=== PATIENT | female | born 1995 | race Caucasian/White ===

== ENCOUNTER 2017-10-19 09:46 | Outpatient (CLI) | payer MEDICAID | END 2017-10-19 09:47 | disposition home or self-care (01) | LOC: CTENTCT 09:46 | PROVIDERS: ATTEND Otolaryngology Plastic Surgery within the Head & Neck | DX: J32.9 Chronic sinusitis, unspecified (principal) | CPT/HCPCS: 70486 ==

== ENCOUNTER 2018-09-04 14:27 | Day surgery (SDC) | payer MEDICAID, OTHER ==
[2018-09-04 15:02] VITALS: BMI 23.9
--- NOTE | 2018-09-04 15:23 | PDOC.FPROB ---
FMR OB H&P: HPI - History of Present Illness Chief Complaint: Back pain Indentification: 22 year old History of Present Illness: 22 year old at 20.1 wks with DANIELA of 01/21/2018 presents with back pain with onset yesterday. She states that the pain has been intermittent in intensity since that time, but it acutely worsened today. She is having difficulty getting comfortable. Patient also endorses N/V/D since today. She has had NBNB emesis x2. Patient endorses abdominal pain, worse in the left lower quadrant. She denies headache, vision changes, LoF, changes in vaginal discharge, vaginal bleeding, or contractions. Primary Care Physician: Dr. Mcneal FMR OB H&P: Current - Care : 4 Para: 2 Gestational age: 20.1 wks Due date: 01/21/2018 - OB Labs GBS: unknown FMR OB H&P: History - Past Medical History PMH: Hx of kidney infections with last hospitalization 2 years ago Bipolar disorder - OB History OB History: Hx of ectopic in prior CS x2 - Surgical History Sx History: CX x2 - Social History Social History: Patient denies alcohol, drug, tobacco use. FMR OB H&P: Medications - Current Home Medications: Medication Instructions Recorded Confirmed Type Acetaminophen [Tylenol Extra 1,000 mg PO NOW tab 09/04/18 Rx Strength] Potassium Chloride [Klor-Con] 40 meq PO DAILY #2 pk 09/04/18 Rx 105/Iron/Folic AC/Dha 1 09/04/18 History [Prena1 True Combo Pack] Allergies/Adverse Reactions: Allergies Allergy/AdvReac Type Severity Reaction Status Date / Time No Known Allergies Allergy Unverified 09/04/18 14:54 FMR OB H&P: ROS - Review of Systems General: reports: fever/chills (chills), weight/appetite/sleep changes ( Decreased appetite due to nausea/vomiting) Eyes: denies: vision changes ENT: denies: nasal congestion, rhinorrhea, sore throat Respiratory: reports: shortness of breath. denies: cough, congestion Gastrointestinal: reports: abdominal pain, nausea, vomiting (x2), diarrhea Genitourinary (Female): denies: dysuria, vaginal discharge, vaginal pain, vaginal bleeding, contractions Musculoskeletal: reports: pain (left flank pain) Neurologic: denies: syncope, seizures, headache Integumentary: denies: itching, lesions Hematologic/Lymphatic: denies: prolonged or excessive bleeding FMR OB H&P: Vital Signs - Maternal Vital signs: VSS FMR OB H&P: Physical Exam - Physical Exam General: awake, alert and oriented Deviation from normal: Appeared to be in moderate amount of discomfort HEENT: normocephalic and atraumatic, MMM, grossly normal vision, grossly normal hearing Neck: supple Heart: RRR, no murmurs/rubs/gallops General: CTAB, no respiratory distress Abdomen: soft, gravid, other (Left sided CVA tenderness) Deviation from normal: Tender to palpation. Worse in LLQ. No rebound tenderness. No peritoneal s/s Neurological: no focal deficit Skin: no rash, capillary refill <2 seconds Lymphatic: no unusual bruising or bleeding Psychiatric: intact recent and remote memory FMR OB H&P: A/P - Problem List (1) Flank pain, acute Status: Acute Code(s): R10.9 - UNSPECIFIED ABDOMINAL PAIN (2) Status: Acute Qualifiers: Weeks of gestation: 20 weeks Qualified Code(s): Z3A.20 - 20 weeks gestation of (3) Hypokalemia Status: Acute Code(s): E87.6 - HYPOKALEMIA Disposition: 1. Flank pain, Left - 2 day history of left flank pain - Associated with N/V/D - UA negative; will send for urine culture due to history of kidney infections - CBC nml. CMP showed potassium 3.2, otherwise normal: no other electrolyte abnormalities, kidney injury, or liver injury noted - 1L LR bolus given - Tylenol 1000 mg and zofran 4 mg given - Upon re-evaluation, patient's flank pain had improved - Advised PO hydration at home 2. sIUP - at 20.1 wks - No concern for labor - dopplers showed FHT's in 130's; not picking up on NST 3. Hypokalemia - Replace potassium; prescription sent to pharmacy 4. UDS positive for Barbiturates - 2/2 fiocet use; advised to discuss all medications with OB before taking Discussion: Date/Time: 09/04/18 3799 This H&P was discussed with Dr. Hartman who agrees with the above documentation and plan. Signature: Sona Bass DO PGY-2 Attending Addendum - Attending Addendum Date/Time: 09/04/181911 I personally evaluated the patient and discussed the management with Dr. Wong. I agree with the History, Examination, Assessment and Plan documented above and have discussed with Dr. Mcneal.
[2018-09-04] MEDS ORDERED: Ondansetron ODT 4 MG TAB ONE (15:32)
[2018-09-04] MEDS ORDERED: Acetaminophen 500 MG TAB ONE ×2 (15:33→15:34)
[2018-09-04 15:45] LABS: Bacteria/HPF None Seen HPF (None Seen); Hyaline Casts/LPF NONE SEEN LPF (0-3 Hyaline); RBC/HPF None Seen HPF (0-3); Squamous Epithelial 0-3 HPF (0-3); WBC/HPF None Seen HPF (0-3)
[2018-09-04] MEDS ORDERED: Lactated Ringer's 1,000 ML IV SCH (15:45)
[2018-09-04] MEDS ORDERED: Ondansetron HCl/PF 4 MG/2 ML Vial IM SCH (16:00)
[2018-09-04] MEDS ORDERED: Acetaminophen 500 MG TAB PO SCH (16:00)
[2018-09-04 16:08] LABS: #Eosinphils 0.1 thou/uL (0.0-0.7); #Lymphocytes 1.4 thou/uL (1.20-3.40); #Monocytes 0.7 thou/uL (0.11-0.59); #Neutrophils 8.3 thou/uL (1.40-6.50); %Basophils 0.3 % (0.0-1.0); %Eosinophils 1.2 % (0.0-10.0); %Lymphocytes 13.5 % (21.0-51.0); %Monocytes 6.7 % (0.0-10.0); %Neutrophils 78.4 % (42.0-75.0); Hemoglobin 12.4 g/dL (12.0-16.0); Mean Corpuscular HGB CONC 34.4 g/dL (32.0-36.0); Mean Corpuscular Hemoglobin 30.5 pg (27.0-31.0); Mean Corpuscular Volume 88.9 fL (78.0-98.0); Mean Platelet Volume 8.5 fL (7.4-10.4); Platelet Count 181 thou/uL (130-400); RBC Distribution Width 11.7 % (11.5-14.5); Red Blood Cell (RBC) Count 4.08 mill/uL (4.20-5.40); White Blood Cell (WBC) Count 10.6 thou/uL (4.8-10.8)
[2018-09-04 16:32] LABS: ALT (SGPT) 9 U/L (8-55); AST (SGOT) 14 U/L (5-34); Albumin 3.6 g/dL (3.5-5.0); Alkaline Phosphatase 69 U/L (40-150); Anion Gap 10 mmol/L (10-20); BUN (Urea Nitrogen) 6 mg/dL (7.0-18.7); Bilirubin, Total 0.3 mg/dL (0.2-1.2); Calc. Creatinine Clearance 152 mL/min (70-130); Calcium 8.7 mg/dL (7.8-10.44); Carbon Dioxide 22 mmol/L (22-29); Chloride 107 mmol/L (98-107); Estimated GFR-MDRD Greater than 90; Globulin 3.2 g/dL (2.4-3.5); Glucose 81 mg/dL (70-105); Potassium 3.2 mmol/L (3.5-5.1); Protein, Total 6.8 g/dL (6.0-8.3); Sodium 136 mmol/L (136-145)
[2018-09-04 16:49] LABS: Amphetamine Not Detected (NotDetected); Barbiturates Screen Detected (NotDetected); Benzodiazepine Screen Not Detected (NotDetected); Cocaine Metabolite Screen Not Detected (NotDetected); Medtox Control Line Valid? VALID (VALID); Medtox Reader # READER 1; Methadone Not Detected (NotDetected); Methamphetamine Not Detected (NotDetected); Opiate Screen Not Detected (NotDetected); Oxycodone Screen Not Detected (NotDetected); Phencyclidine (PCP) Not Detected (NotDetected); THC/Cannabinoid Screen Not Detected (NotDetected); Tricyclic Screen Not Detected (NotDetected)
[2018-09-04] MEDS ORDERED: Potassium Chloride 20 MEQ TAB PO SCH (17:00)
== END 2018-09-04 17:55 | disposition home or self-care (01) ==
LOC: L&D/OP 14:27
PROVIDERS: ATTEND Obstetrics & Gynecology
DX: O99.89 Other specified diseases and conditions complicating pregnancy, childbirth and the puerperium (principal); M54.9 Dorsalgia, unspecified; R10.9 Unspecified abdominal pain; O99.282 Endocrine, nutritional and metabolic diseases complicating pregnancy, second trimester; E87.6 Hypokalemia; Z3A.20 20 weeks gestation of pregnancy
CPT/HCPCS: 36415; 80053; 80306; 81015; 85025; 99283; Q0162

== ENCOUNTER 2018-12-04 01:42 | Day surgery (SDC) | payer OTHER ==
[2018-12-04 02:20] VITALS: BP 114/78; TEMP 97.6; BMI 27.1
--- NOTE | 2018-12-04 02:38 | PDOC.LDHP ---
Labor and Delivery H&P HPI: Patient of Dr Mcneal CC: possible contractions at 32 weeks 3 days Location: L&D Time: 229 HPI: 23 yo prior CS x 2 here for possible CTX, no LOF, no VB. Good FM. Recently DX with UTI on 12/02 but has not yet started her percribed antibiotics. No fever. Review of Systems: complete ROS done and as per HPI Current gestational age (weeks): 32 (3 days) Dating criteria: last menstrual period Grav: 3 Para: 2 OB History Details: CS X 2 Current complications: none Abnormal US findings: No Current medications: pre-betty vitamins Previous surgical history: low tranverse CS (X 2) Allergies/Adverse Reactions: Allergies Allergy/AdvReac Type Severity Reaction Status Date / Time No Known Allergies Allergy Verified 12/04/18 02:13 Social history: none - Physical Exam Vital signs reviewed and normal: yes General: NAD Heart: RRR Lungs: CTAB Abdomen: gravid Extremeties: no edema FHT: category 1 [place] contractions every: none - Assessment Threatened lacor (PTL) at 32 weeks, prior CS x 2...HX recent UTI DX...has RX at home - Plan Plan: observation in L&D (Reactive NST; no evidence CTX pattern; check CX. Patient to start her outpatient antibiotics as prescribed.)
== END 2018-12-04 02:49 | disposition home or self-care (01) ==
LOC: L&D/OP 01:42
PROVIDERS: ATTEND Obstetrics & Gynecology
DX: O47.03 False labor before 37 completed weeks of gestation, third trimester (principal); Z3A.32 32 weeks gestation of pregnancy; Z79.899 Other long term (current) drug therapy
CPT/HCPCS: 99282

== ENCOUNTER 2018-12-27 23:40 | Day surgery (SDC) | payer OTHER ==
[2018-12-28] MEDS ORDERED: Dexamethasone 4 mg/ml Vial ONE (00:02)
[2018-12-28] MEDS ORDERED: Betamet Acet/Betamet Na Ph 30 MG/5 ML VIAL ONE (00:03)
[2018-12-28] MEDS ORDERED: Lactated Ringer's 1,000 ML IV SCH ×2 (00:15)
[2018-12-28] MEDS ORDERED: NIFEdipine 10 MG CAP PO PRN (00:16)
--- NOTE | 2018-12-28 00:28 | PRG ---
DATE OF SERVICE: 12/28/2018 TIME OF SERVICE: 0005. PRESENTING COMPLAINT: Contractions at 35 weeks' gestation. HISTORY OF PRESENT ILLNESS: The patient is a 23-year-old 4, para 2, AB1 at 35 weeks, previous x2, who presents complaining of contractions for 3 days. She states they have been worse today. She denied rupture of membranes. She states her baby is too big and she thinks her belly may pop. She denies rupture of membranes. She reports an active fetus. [employer] HISTORY: x2, ectopic x1. Patient is unsure of laterality of her previous ectopic with salpingectomy. She denies STDs. She reports that she is O positive. Antepartum record is not available on the unit. PAST MEDICAL HISTORY: Denies. PAST SURGICAL HISTORY: Ectopic. ALLERGIES: DENIES. MEDICATIONS: vitamins. SOCIAL HISTORY: Denies tobacco, alcohol, or drug use. FAMILY HISTORY: Noncontributory. REVIEW OF SYSTEMS: Noncontributory. PHYSICAL EXAMINATION: GENERAL: White female, in no acute distress. VITAL SIGNS: Temperature 98.9, respirations 18, pulse 92, blood pressure 118/ 72. HEENT: Within normal limits. LUNGS: Clear to auscultation bilaterally. HEART: Regular rhythm. ABDOMEN: Soft with palpable contractions q.3 to 5 that are indentable. Fundal height 36 cm. FHTs are 140s to 150s. Full without lesions. Vagina without discharge. Cervix closed, long, and high. Cephalic presentation. EXTREMITIES: Without clubbing, cyanosis, or edema. Nonstress test reveals contractions q.2.5 to 5 minutes. heart rate baseline of 135, positive accelerations to 150, no decelerations noted, category I. IMPRESSION: contractions without evidence of active labor at 35 weeks' gestation, previous x2. PLAN: Admission, hydration, Procardia per protocol, betamethasone for lung maturity. 12/28/18 0300: pt contractions resolved. Pt dc home to fu on pm for second dose of betamethesone. Job ID: [id number] [facility]
[2018-12-28] MEDS ORDERED: Betamet Acet/Betamet Na Ph 30 MG/5 ML VIAL IM SCH (00:30)
[2018-12-28] MEDS: NIFEdipine 10 MG CAP PO SCH ×3 (00:30→01:42)
[2018-12-28] MEDS ORDERED: Acetaminophen 500 MG TAB PO PRN (01:56)
[2018-12-28 01:57] VITALS: BP 128/72; TEMP 97.6
[2018-12-28] MEDS ORDERED: diphenhydrAMINE 25 MG CAP PO SCH (02:30)
== END 2018-12-28 03:55 | disposition home or self-care (01) ==
LOC: L&D/OP 23:40
PROVIDERS: ATTEND Obstetrics & Gynecology
DX: O60.03 Preterm labor without delivery, third trimester (principal); Z3A.35 35 weeks gestation of pregnancy
CPT/HCPCS: 96360; 96361; 96372; 99285; J0702; J1100; Q0163

== ENCOUNTER 2019-01-19 09:16 | Inpatient (IN) | payer OTHER ==
[2019-01-19] MEDS: Lactated Ringer's 1,000 ML IV SCH ×3 (09:41→20:27)
[2019-01-19] MEDS ORDERED: Promethazine HCl 25 MG/ML VIAL IM PRN ×3 (10:18→18:07)
[2019-01-19] MEDS ORDERED: Ondansetron PF 4 MG/2 ML Vial IVP PRN ×3 (10:18→18:07)
--- NOTE | 2019-01-19 10:23 | PDOC.LDHP ---
Labor and Delivery H&P Chief complaint: scheduled section Due date: 01/26/19 Grav: 4 Para: 2 Current complications: none Abnormal US findings: No Current medications: pre- vitamins Previous surgical history: low tranverse CS, other (laparoscopy (suspected ectopic)) Allergies/Adverse Reactions: Allergies Allergy/AdvReac Type Severity Reaction Status Date / Time No Known Allergies Allergy Verified 12/28/18 00:00 Social history: none - Physical Exam Vital signs reviewed and normal: yes General: NAD, resting Heart: RRR Lungs: CTAB Abdomen: gravid Extremeties: no edema FHT: category 1 - Assessment L&D Assessment: scheduled repeat section - Plan Plan: admit to L&D, to OR for section
[2019-01-19 10:29] VITALS: BMI 27.3
[2019-01-19] MEDS ORDERED: Bicitra 30 ML UDCUP PO SCH (10:30)
[2019-01-19] MEDS ORDERED: CEFAZOLIN 2 GM in Premix Bag 1 BAG IVPB SCH (10:30)
[2019-01-19 10:41] LABS: Hemoglobin 10.4 g/dL (12.0-16.0); Mean Corpuscular HGB CONC 32.1 g/dL (32.0-36.0); Mean Corpuscular Hemoglobin 23.3 pg (27.0-31.0); Mean Corpuscular Volume 72.4 fL (78.0-98.0); Mean Platelet Volume 10.6 fL (7.4-10.4); Platelet Count 142 thou/uL (130-400); RBC Distribution Width 16.1 % (11.5-14.5); Red Blood Cell (RBC) Count 4.46 mill/uL (4.20-5.40); White Blood Cell (WBC) Count 11.3 thou/uL (4.8-10.8)
[2019-01-19 11:20] LABS: HBSAg Index 0.19 S/CO (0-0.99); Hep B Surf Ag Non-Reactive S/CO (NonReactive); Syphilis Antibody Nonreactive (Nonreactive); Syphilis Antibody Index 0.04 S/CO (<1.00 Non-Reactive)
[2019-01-19] MEDS ORDERED: Ketorolac Tromethamine 30 MG/ML VIAL ONE ×2 (11:20→15:05)
[2019-01-19] MEDS ORDERED: Ondansetron PF 4 MG/2 ML Vial ONE ×2 (11:20→15:00)
[2019-01-19] MEDS ORDERED: Dexamethasone 20 MG/5 ML VIAL ONE (11:20)
[2019-01-19] MEDS ORDERED: MORPHINE 5 MG/10 ML PF VIAL ONE (14:19)
[2019-01-19] MEDS ORDERED: ePHEDrine/0.9% NaCl/PF SYRINGE 50 mg/10 ml ONE (14:32)
[2019-01-19] MEDS ORDERED: Fentanyl 100 MCG/2 ML VIAL ONE (14:51)
[2019-01-19] MEDS ORDERED: Midazolam HCl 2 mg/2 ml Vial ONE ×2 (14:52→15:11)
[2019-01-19] MEDS ORDERED: Oxytocin 10 UNITS/ML VIAL ONE (15:01)
[2019-01-19] MEDS ORDERED: Dexamethasone 4 mg/ml Vial ONE (15:05)
[2019-01-19] MEDS ORDERED: Promethazine HCl 25 MG SUPP PR PRN (15:21)
[2019-01-19] MEDS ORDERED: HYDROmorphone 2 MG/ML VIAL SLOW IVP PRN (15:21)
[2019-01-19] MEDS ORDERED: Eucerin (Mineral Oil/Petrolatum,White) 30 gm Jar TOP PRN (15:21)
[2019-01-19] MEDS ORDERED: Naloxone HCl 0.4 mg/ml Vial IVP PRN ×2 (15:21)
[2019-01-19] MEDS ORDERED: diphenhydrAMINE 50 MG/ML VIAL IVP PRN (15:21)
[2019-01-19] MEDS ORDERED: Ketorolac Tromethamine 30 MG/ML VIAL IVP PRN (15:21)
[2019-01-19] MEDS ORDERED: Ondansetron HCl/PF 4 MG/2 ML Vial IVP PRN (15:21)
[2019-01-19] MEDS ORDERED: Naloxone HCl 0.4 mg/ml Vial IV PRN (15:21)
[2019-01-19] MEDS ORDERED: L&D-Morphine 4 MG/ML VIAL SLOW IVP PRN (15:21)
[2019-01-19] MEDS ORDERED: Communication Order-Pharmacy FS SCH (15:30)
[2019-01-19] MEDS ORDERED: Meperidine HCl/PF 25 MG/ML VIAL ONE ×2 (15:57→17:40)
[2019-01-19] MEDS: Meperidine HCl/PF 25 MG/ML VIAL SLOW IVP PRN ×2 (15:59→17:42)
[2019-01-19] MEDS ORDERED: diphenhydrAMINE 50 MG/ML VIAL ONE (16:20)
[2019-01-19] MEDS ORDERED: Adacel (T-DAP) 0.5 ML SYRINGE IM ONE (18:07)
[2019-01-19] MEDS ORDERED: Simethicone Chewable 80 MG TAB PO PRN (18:07)
[2019-01-19] MEDS ORDERED: Bisacodyl 10 MG SUPP PR PRN (18:07)
[2019-01-19] MEDS ORDERED: Lanolin Ointment 7 GM TUBE TOP PRN (18:07)
[2019-01-19] MEDS ORDERED: Misoprostol 200 MCG TAB PR PRN (18:07)
[2019-01-19] MEDS ORDERED: Methylergonovine 0.2 MG/ML VIAL IM PRN (18:07)
[2019-01-19] MEDS ORDERED: NS / Oxytocin 40 units/1000ml 1,000 ML IV SCH (18:07)
[2019-01-19] MEDS ORDERED: Measles/Mumps/Rubella 10 MCG/0.5 ML VIAL SC ONE (18:07)
[2019-01-19] MEDS ORDERED: Varicella virus, LIVE 0.5 ML VIAL SC ONE (18:07)
[2019-01-19] MEDS: diphenhydrAMINE 25 MG CAP PO PRN (20:26)
[2019-01-19] MEDS: Docusate Calcium (SURFAK) 240 MG CAP PO SCH (20:26)
[2019-01-20] MEDS: Lactated Ringer's 1,000 ML IV SCH (00:55)
[2019-01-20] MEDS ORDERED: Zolpidem Tartrate 5 MG TAB PO PRN (03:30)
[2019-01-20] MEDS ORDERED: HYDROcodone/Acetaminophen 5/325 mg Tablet PO PRN (03:30)
[2019-01-20] MEDS: HYDROcodone/Acetaminophen 5/325 mg Tablet PO PRN ×3 (04:44→17:33)
[2019-01-20 06:06] LABS: Hemoglobin 8.8 g/dL (12.0-16.0); Mean Corpuscular HGB CONC 31.9 g/dL (32.0-36.0); Mean Corpuscular Hemoglobin 23.3 pg (27.0-31.0); Mean Corpuscular Volume 73.2 fL (78.0-98.0); Mean Platelet Volume 10.2 fL (7.4-10.4); Platelet Count 131 thou/uL (130-400); RBC Distribution Width 15.6 % (11.5-14.5); Red Blood Cell (RBC) Count 3.76 mill/uL (4.20-5.40); White Blood Cell (WBC) Count 13.8 thou/uL (4.8-10.8)
[2019-01-20] MEDS: diphenhydrAMINE 25 MG CAP PO PRN ×2 (06:18→19:38)
[2019-01-20] MEDS ORDERED: Sodium Chloride 0.9% 10 ML ONE ×2 (08:55→09:02)
[2019-01-20] MEDS: Docusate Calcium (SURFAK) 240 MG CAP PO SCH ×2 (08:58→19:38)
[2019-01-20] MEDS: Prenatal Vitamin 1 TAB PO SCH (08:58)
[2019-01-20] MEDS: Ibuprofen 800 MG TAB PO SCH ×2 (14:28→21:19)
--- NOTE | 2019-01-20 19:24 | PDOC.PP ---
Post Progress Note Post Day #: 1 PO intake tolerated: yes Flatus: yes Ambulation: yes Vital Signs (12 hours) Temp Pulse Resp BP Pulse Ox 01/20/19 17:23 97.6 F 96 16 115/64 97 01/20/19 08:11 97.6 F 89 20 103/61 97 Weight Weight 159 lb - Physical Examination General: NAD Cardiovascular: no m/r/g, RRR Respiratory: clear to auscultation bilaterally, non-labored breathing Abdominal: + bowel sounds, lochia, no distention Extremities: negative homans (B) Skin: CS incision dry & intact Neurological: no gross focal deficits Psychiatric: A&Ox3, normal affect Result Diagrams: 01/20/19 05:37 Additional Labs: Post Labs Blood Type O POSITIVE 01/19/19 10:29 Hep Bs Antigen Non-Reactive S/CO (NonReactive) 01/19/19 10:29
[2019-01-20] MEDS: Calcium Carbonate 500 MG ChewTAB PO PRN (19:38)
[2019-01-21] MEDS: HYDROcodone/Acetaminophen 5/325 mg Tablet PO PRN ×3 (02:39→12:31)
[2019-01-21] MEDS: Ibuprofen 800 MG TAB PO SCH ×2 (05:54→13:32)
--- NOTE | 2019-01-21 07:22 | PRG ---
DATE OF SERVICE: 01/21/2019 PRIMARY OB: Deonte Mcneal MD SUBJECTIVE: The patient is postop day 2, status post a scheduled repeat at term. She reports she is having decent pain control and reducing lochia. She has difficulty urinating, tolerating a diet. OBJECTIVE: VITAL SIGNS: Blood pressure 122/65, temperature 97.8, pulse of 97, respiratory rate is 20. GENERAL: She appears to be in no acute distress. She is alert, oriented, cooperative, and pleasant to interact with. HEAD: Normocephalic, atraumatic. ABDOMEN: Fundus is firm and at the umbilicus. EXTREMITIES: Nontender, nonedematous. Incision is clean, dry, and intact. LABORATORY DATA: Postoperative hemoglobin is 8.8, hematocrit 27.5, platelets are 131,000. ASSESSMENT AND PLAN: The patient is a 23-year-old female, postop day 2, complaining of hesitancy, urination. This may be result of residual effects of anesthesia or may be signs of urinary tract infection. We will collect a cath UA for evaluation and we will continue in-house management with plans for discharge tomorrow. Job ID: [id number]
[2019-01-21] MEDS: Calcium Carbonate 500 MG ChewTAB PO PRN (09:00)
[2019-01-21] MEDS: Docusate Calcium (SURFAK) 240 MG CAP PO SCH (09:00)
[2019-01-21] MEDS: Prenatal Vitamin 1 TAB PO SCH (09:01)
--- NOTE | 2019-01-21 09:15 | PDOC.EVN ---
Event Note - Event Note Event Note: 01/21/19.. @0915: just notified by RN that patient declines the cath UA as ordered by Dr Appiah. I will defer voided sample as 2 days PP may be contaminated. Check post void residual by bladder scan instead, to R/O retention as possibility.
--- NOTE | 2019-01-21 10:19 | PDOC.EVN ---
Event Note - Event Note Event Note: Patient voided but did not notify the RN immediately after void for scan, as instructed. After about an hour from void, bladder scan about 100ml. She now states she is "peeing fine".
[2019-01-21 11:21] VITALS: BP 112/61; TEMP 98.1
--- NOTE | 2019-01-21 12:44 | PDOC.EVN ---
Event Note - Event Note Event Note: DISCHARGE NOTE POD 2 s/p repeat CS (not in labor) Baby has been released for DC home today. The patient is also requesting dsch. Patient has been evaluated. Postop HCT 28 Incision C/D/I, vitals stable. I have cleared her for DC home today, POD [address] Mcneal.
--- NOTE | 2019-02-02 03:00 | OP ---
DATE OF PROCEDURE: 01/19/2019 PREOPERATIVE DIAGNOSIS: Intrauterine at 39 weeks and zero days, scheduled for a third repeat section. POSTOPERATIVE DIAGNOSIS: Intrauterine at 39 weeks and zero days, scheduled for a third repeat section. PROCEDURE PERFORMED: Repeat third section. FINDINGS: Viable female infant weighing 2739 g or 6 pounds 1 ounce with Apgars 9 and 9. QUANTITATIVE BLOOD LOSS: 265 g. COMPLICATIONS: None. DETAILS OF THE PROCEDURE: The patient was consented and taken back to the operating room where spinal anesthesia was found to be adequate. She was then prepped and draped in the normal sterile fashion. A timeout was performed by the entire operative team. The incision was then marked with a marking pen tested using sharp pickups. An incision was then made with a scalpel. The incision was carried through the adipose tissue down to the underlying rectus fascia using both sharp dissection as well as cautery. Once the fascia was identified, it was incised in the midline and then the fascial incision was carried through in both lateral directions using sharp as well as cautery dissection techniques. Next, the superior aspect of the rectus fascia was grasped with 2 Marga clamps, which was tented up and the rectus muscles were dissected off using blunt dissection as well as cautery dissection. Similarly, the inferior aspect of the fascial incision was grasped with 2 Marga clamps, tented up and the rectus muscles were dissected off bluntly as well as sharply. Next, the rectus muscles were in the midline and the peritoneum identified. The peritoneum was then carefully grasped with 2 hemostats and entered sharply. The peritoneal incision was extended superiorly and inferiorly and bladder blade was placed in the lower abdomen. At this point, the uterus was identified and the bladder flap was then developed using pickups with teeth as well as Metzenbaum scissors in both lateral directions. The bladder flap was then dissected downwards using the flash drier operator's finger as well as Metzenbaum scissors. The bladder blade was replaced. The lower uterine segment was then identified and entered sharply using a clean scalpel. The uterine incision was then dissected downwards until thin layer of muscle remained and this was entered bluntly using a hemostat to avoid any injury to the baby. The uterine incision was then stretched using two fingers in both lateral directions. An amniotomy was performed artificially using a hemostat and the baby was delivered using fundal pressure in a gentle fashion. Once out, the baby's mouth and nose were bulb suctioned, cord clamped and cut, and the baby was handed to waiting attendants. Next, the uterus was exteriorized, cleared of all clots and debris and the uterine incision was repaired with #1 Monocryl in a running locking fashion. A 2nd suture of the same type was used to obtain complete hemostasis at the uterine incision. The bladder flap was reapproximated using 3-0 Monocryl. Next, patient's left and right adnexa were inspected and appeared to be within normal limits. The posterior cul-de-sac was blotted dry and hemostasis assured. One more look at the uterine incision demonstrated hemostasis. Next, the uterus was replaced back within the abdomen. The peritoneum was reapproximated using 2-0 Monocryl without difficulty. The rectus muscles were then allowed to come back together and 0 chromic was used to aid in reapproximation of the muscle as necessary. The rectus fascia was then reapproximated in a running fashion using 0 Vicryl suture. The adipose tissue was then examined and appeared to be well approximated without any obvious separations. Finally, the skin was reapproximated with 3-0 Monocryl on a Tyrell needle without difficulty and Dermabond adhesive was applied to the skin. Once the glue was dry, the drapes were removed and the patient was transferred to an ambulatory bed where she was taken to recovery awake and in stable condition. Sponge, lap, and needle counts were correct x3. Job ID: [id number]
== END 2019-01-21 14:00 | disposition home or self-care (01) | DRG 788 ==
LOC: L&D 09:16 → 3SW 19:53
PROVIDERS: ADMIT Obstetrics & Gynecology; ATTEND Obstetrics & Gynecology
PROC: 10D00Z1 Extraction of Products of Conception, Low, Open Approach (ICD-10-PCS; principal; 2019-01-19)
PROC: 10907ZC Drainage of Amniotic Fluid, Therapeutic from Products of Conception, Via Natural or Artificial Opening (ICD-10-PCS; 2019-01-19)
DX: O34.211 Maternal care for low transverse scar from previous cesarean delivery (principal); Z3A.39 39 weeks gestation of pregnancy; Z37.0 Single live birth; Z23 Encounter for immunization
CPT/HCPCS: 36415; 51702; 85027; 86780; 86850; 86900; 86901; 87340; 90707; 90715; 90716; J1100; J1200; J1885; J2175; J2250; J2270; J2310; J2405; J2590; J3010; Q0163

== ENCOUNTER 2019-11-22 18:55 | Emergency (ER) | payer OTHER ==
--- NOTE | 2019-11-22 20:02 | ULT ---
EXAM: Transabdominal and transvaginal pelvic ultrasound with Doppler PROVIDED CLINICAL HISTORY: Pelvic pain COMPARISON: None FINDINGS: The uterus measures approximately 8.6 x 4.4 x 5.2 cm and demonstrates a small endometrial fluid colle ction without yolk sac or pole apparent. Right ovary measures approximately 2 x 2 0.4 x 1.5 cm and demonstrates a normal sonographic appearanc e. Left ovary measures approximately 2.3 x 1.7 x 2.5 cm and demonstrates a normal sonographic appearance . Grayscale and color Doppler sonography with spectral analysis of the ovarian waveforms demonstrates n ormal flow bilaterally. There is no evidence for significant free pelvic fluid. IMPRESSION: Endometrial fluid collection without yolk sac or pole, possibly early gestational sac, pseudo-g estational sac or endometrial fluid.
== END 2019-11-22 20:30 | disposition home or self-care (01) ==
LOC: ERS 18:55
DX: O20.0 Threatened abortion (principal); Z3A.01 Less than 8 weeks gestation of pregnancy
CPT/HCPCS: 76856

== ENCOUNTER 2019-11-24 15:03 | Emergency (ER) | payer OTHER ==
--- NOTE | 2019-11-24 16:20 | ULT ---
ULTRASOUND PELVIC ULTRASOUND TRANSVAGINAL DOPPLER DUPLEX: DATE: 11/24/2019 HISTORY: 24-year-old female with pelvic pain. Ectopic . TECHNIQUE: Transabdominal transducer and endovaginal transducer used to visualize intrapelvic contents with ordaz scale, color-flow, and spectral analysis. FINDINGS: Uterus: 9 x 6.5 x 4.5 cm. Small cystic structure resembling gestational sac at uterine fundus measuring 1 x 0.6 x 0.8 cm. No yolk sac or embryonic pole identified within. Adjacent small subchorionic hemorrhage. Small amount of free fluid in right adnexa. Right ovary 2.6 x 1.0 x 1.7 cm. Left ovary: 3.1 x 2.0 x 2.5 cm. No corpus luteal cyst. Blood flow demonstrated in ovaries. No free fluid in the cul-de-sac. IMPRESSION: 1) apparent intrauterine gestational sac with dimensions corresponding to 5 weeks 5 days gestational age. 2) no embryonic pole and no yolk sac identified. 3) possibilities include anembryonic versus very early viable . Pseudogestational sac of ectopic is less likely. 4) subchorionic hemorrhage. 5) recommend follow-up pelvic and transvaginal ultrasound in one week. Continued follow-up beta hCG.
[2019-11-24] MEDS ORDERED: Ondansetron ODT 4 MG TAB ONE (16:56)
== END 2019-11-24 17:45 | disposition home or self-care (01) ==
LOC: ERS 15:05
DX: O99.89 Other specified diseases and conditions complicating pregnancy, childbirth and the puerperium (principal); R10.30 Lower abdominal pain, unspecified; Z3A.01 Less than 8 weeks gestation of pregnancy
CPT/HCPCS: 36415; 76856; 84702; Q0162

== ENCOUNTER 2019-11-24 18:07 | Emergency (ER) | payer OTHER ==
[2019-11-24 19:08] LABS: #Lymphocytes 0.9 thou/uL (1.20-3.40); #Monocytes 0.4 thou/uL (0.11-0.59); #Neutrophils 4.3 thou/uL (1.40-6.50); %Basophils 0.3 % (0.0-1.0); %Eosinophils 0.6 % (0.0-10.0); %Lymphocytes 16.1 % (21.0-51.0); %Monocytes 7.7 % (0.0-10.0); %Neutrophils 75.3 % (42.0-75.0); Mean Corpuscular HGB CONC 34.3 g/dL (32.0-36.0); Mean Corpuscular Hemoglobin 28.3 pg (27.0-31.0); Mean Corpuscular Volume 82.3 fL (78.0-98.0); Platelet Count 116 thou/uL (130-400); RBC Distribution Width 12.1 % (11.5-14.5); Red Blood Cell (RBC) Count 4.23 mill/uL (4.20-5.40); White Blood Cell (WBC) Count 5.7 thou/uL (4.8-10.8)
[2019-11-24] MEDS ORDERED: Acetaminophen/Codeine 30-300mg Tablet ONE ×2 (19:11)
[2019-11-24] MEDS ORDERED: Ondansetron ODT 4 MG TAB ONE (19:20)
--- NOTE | 2019-11-24 19:30 | HP ---
LOCATION: ER, bed 24. TIME OF EVALUATION: 1829 until 1854. PHYSICIAN REQUESTING EVALUATION: Dr. Wynn with the Emergency Medicine. REASON FOR EVALUATION: Suspected ectopic , the patient is stable. HISTORY OF PRESENT ILLNESS: In brief, this is a 24-year-old female who is a 4, para 3 with 3 previous C-sections and 2 previous ectopic pregnancies, whose last menstrual period was about 6-1/2 weeks ago. She states that her last delivery which was by was in 2019 and her last ectopic was in 2018, treated at the [facility] by laparoscopy. She states that she only has "one tube " but not sure which side. She presents now with some colicky pelvic pain, but no overt vaginal bleeding. She has no loss of consciousness and the pain is described as mild. She was seen in [place] [facility] on 11/22/2019, with a beta-hCG of 4500. Ultrasound at that time showed a possible small gestational sac in the uterus. Per ER physician, BHCG today was 9900 with sono basically unchanged (no significant free fluid, no adnexal masses, poss small GS under 2cm). Sono does not show YS. REVIEW OF SYSTEMS: Complete review of systems was done and is otherwise negative unless specified in the HPI. The one additional symptom reported is history of migraine headaches and she has had a headache today. PAST MEDICAL HISTORY: Negative. PAST SURGICAL HISTORY: She has 3 prior C-sections and 2 laparoscopies. ALLERGIES: NONE. SOCIAL HISTORY: Denies alcohol, drugs, or tobacco. PHYSICAL EXAMINATION: VITAL SIGNS: Her pulse is 70 to 90, blood pressure is 107/70, respirations are 18 and nonlabored. ABDOMEN: I evaluated the patient at bedside and performed an abdominal exam. I find her abdomen to be soft and nontender, without rigidity. I had ordered the emergency room nurse practitioners as a attorney at law and agree that there was no evidence of rebound on deep palpation. PELVIC: Deferred at this time. DIAGNOSTIC STUDIES: Ultrasound performed today showed a small gestational sac at just under 2 cm, but no yolk sac. Specifically, there is no free fluid in the cul-de-sac and there are no adnexal masses. The ovaries appear normal and they do have flow. INTERVENTIONS ORDERED: CMP, CBC, and Rh type are pending. ASSESSMENT: This is a 24-year-old at roughly 6-7 weeks gestation with a beta- hCG of 9900, three previous C-sections, and two laparoscopies, with no evidence of intrauterine . I have discussed with the patient in detail along with her partner, and at the patient's request, even with her mother on the phone, that based on her beta-hCG level and nothing in the uterus, I suspect that this is another extrauterine gestational. The likelihood of a normal with a beta-hCG over 5000 and nothing in the uterus is very small. Although, the beta-hCG did seem to have a normal rise, the findings of the uterus (lack of IUP) is concerning for ectopic. Based on her abdominal exam, I do not feel that she is a surgical candidate at this time as her vital signs are stable, and her abdomen is completely soft and nonsurgical. I did give her some information that methotrexate is an option at 50 mg/m2 and I did also review surgery. Based on her extensive abdominal surgeries in the past, I informed her that another laparoscopy may be difficult and would potentially increase risk of other visceral injury. I informed her that methotrexate may be a way to avoid surgery, although surgery may still be necessary and it may be necessary urgently. METHOTREXATE: Once again, as she is hemodynamically stable, with what may be ill-fated intrauterine due to the small gestational sac, and due to the lack of free fluid and distinct mass on ultrasound, I feel medical therapy is advised. PLAN: 1. CBC and CMP pre methotrexate. 2. I have given the patient informed consent and I filled out the consent form with her. Risks include failure, need for reinjection, renal or hepatic issues, need for emergency surgery. 3. Check Rh type. 4. We will watch the patient for about an hour after methotrexate and she will follow up on methotrexate day #4, which is at [facility] for repeat beta HCG. 5. I have written down this information on a piece of paper for her to present to [facility] for a beta-hCG check. It is important to note that this patient was initially seen earlier in the ER and went home without having a final disposition because the patient stated "it was taking too long." Dr. Wynn and the ER team called her back to give her these reports and I have seen her at that time. Job ID: [id number] [facility]
[2019-11-24 19:31] LABS: ALT (SGPT) 15 U/L (8-55); AST (SGOT) 14 U/L (5-34); Alkaline Phosphatase 74 U/L (40-110); Anion Gap 10 mmol/L (10-20); BUN (Urea Nitrogen) 6 mg/dL (7.0-18.7); Bilirubin, Total 0.3 mg/dL (0.2-1.2); Calc. Creatinine Clearance 0 mL/min (70-130); Calcium 8.6 mg/dL (7.8-10.44); Carbon Dioxide 25 mmol/L (22-29); Chloride 107 mmol/L (98-107); Estimated GFR-MDRD Greater than 90; Globulin 2.2 g/dL (2.4-3.5); Glucose 97 mg/dL (70-105); Potassium 3.4 mmol/L (3.5-5.1); Protein, Total 6.2 g/dL (6.0-8.3); Sodium 139 mmol/L (136-145)
--- NOTE | 2019-11-24 21:22 | PDOC.EVN ---
Event Note - Event Note Event Note: MTX injection will arrive around 2300. I have talked to the ED about the delay in getting the med. I offerred to move to floor as we wait, but ER nurse said it was OK to stay there for now. I have checked her labs and all ok...HCT 34, CMP ok
--- NOTE | 2019-11-25 10:31 | PRG ---
DATE OF SERVICE: 11/24/2019 TIME: 1950 hours. METHOTREXATE FOLLOWUP In brief, I was called by the patient's nurse that pharmacy stated that there was only 50 mg of methotrexate in this hospital. They have attempted to call the hospital in [facility] and they do not have methotrexate either. According to her BSA calculation (50 mg per body surface area), the dose required is about 87 mg. As the patient is a medical candidate for methotrexate, I requested to talk to the pharmacist. The pharmacist did call me back and we discussed the options of getting methotrexate here. According to the pharmacist, who spoke with the pharmacy resident, they can order the methotrexate additional medication, but it will take about 2 hours to get here. The patient is still stable in the ER and I still feel that medical therapy would be the best at this time as she is clinically stable, vital signs are normal, and due to her multiple past abdominal surgeries, I feel that we can avoid another surgical procedure with this. I do feel that she is an adequate candidate for methotrexate. I recommended that they attempt to get the medicine here, but it may take about 2 hours to get here. As I am in Labor and Delivery, I requested that the patient's nurse inform her of our slight delay. Job ID: [id number]
== END 2019-11-25 00:17 | disposition home or self-care (01) ==
LOC: ERS 18:07
DX: O99.89 Other specified diseases and conditions complicating pregnancy, childbirth and the puerperium (principal); R10.30 Lower abdominal pain, unspecified; Z3A.01 Less than 8 weeks gestation of pregnancy
CPT/HCPCS: 36415; 80053; 84702; 85025; 86900; 86901; 96372; 99284; J9250; Q0162

== ENCOUNTER 2019-11-26 10:52 | Emergency (ER) | payer OTHER ==
[2019-11-26] MEDS ORDERED: Ondansetron PF 4 MG/2 ML Vial ONE ×2 (11:40→14:18)
[2019-11-26] MEDS ORDERED: Ketorolac Tromethamine 30 MG/ML VIAL ONE (11:40)
[2019-11-26] MEDS ORDERED: Morphine 4 MG/ML VIAL ONE (11:40)
[2019-11-26 12:03] LABS: Band 19 % (5-11); Eosinophils 2 % (0-10); Hemoglobin 12.5 g/dL (12.0-16.0); Lymphocytes 6 % (21-51); MDiff Complete? YES; Mean Corpuscular HGB CONC 34.3 g/dL (32.0-36.0); Mean Corpuscular Volume 81.5 fL (78.0-98.0); Mean Platelet Volume 9.9 fL (7.4-10.4); Monocytes 2 % (0-10); Neutrophil 71 % (42-75); Platelet Count 119 thou/uL (130-400); Platelet Morphology Comment Appears Decreased; RBC Distribution Width 12.1 % (11.5-14.5); Red Blood Cell (RBC) Count 4.48 mill/uL (4.20-5.40); White Blood Cell (WBC) Count 8.2 thou/uL (4.8-10.8)
[2019-11-26 12:04] LABS: ALT (SGPT) 14 U/L (8-55); AST (SGOT) 16 U/L (5-34); Albumin 3.9 g/dL (3.5-5.0); Alkaline Phosphatase 76 U/L (40-110); Anion Gap 12 mmol/L (10-20); BUN (Urea Nitrogen) 8 mg/dL (7.0-18.7); Bilirubin, Total 0.4 mg/dL (0.2-1.2); Calc. Creatinine Clearance 0 mL/min (70-130); Calcium 8.9 mg/dL (7.8-10.44); Carbon Dioxide 22 mmol/L (22-29); Chloride 105 mmol/L (98-107); Estimated GFR-MDRD Greater than 90; Globulin 2.9 g/dL (2.4-3.5); Glucose 84 mg/dL (70-105); Potassium 3.3 mmol/L (3.5-5.1); Protein, Total 6.8 g/dL (6.0-8.3); Sodium 136 mmol/L (136-145)
[2019-11-26 13:29] LABS: Bilirubin Negative (Negative); Blood, Urine Negative (Negative); Clarity Clear (Clear); Glucose, Urine (Dipstick) Normal (Negative); Leukocyte Negative Leu/uL (Negative); Nitrite Negative (Negative); Protein, Urine (Dipstick) Negative (Neg-Trace); Urobilinogen Normal mg/dL (Less than 2)
--- NOTE | 2019-11-26 14:01 | ULT ---
TRANSABDOMIANL AND TRANSVAGINAL PELVIC ULTRASOUND WITH BOWSER-SCALE AND COLOR-FLOW AND SPECTRAL DOPPLER IMAGING: HISTORY: Recent diagnosis of ectopic . Worsening pain. COMPARISON: 11/24/2019 FINDINGS: The uterus measures 8.7 x 4.9 x 5.7 cm. There is a single intrauterine cystic structure, resembling a gestational sac, measuring 0.96 cm, with an estimated gestational age of 5 weeks 5 days. No po le or yolk sac is seen. The right ovary is not visualized due to the patient's pain during the exam. The left ovary measures 1.4 x 2.8 x 1.9 cm. Flow is demonstrated to the left ovary. The left ovary is normal. No free fluid i s seen in the cul-de-sac. IMPRESSION: Findings suggestive of a single intrauterine gestational sac without pole or yolk sac. Measurem ents correspond to an estimated gestational age of 5 weeks 5 days. Correlation with serial serum beta hCG levels and follow-up ultrasound is recommended. POS: KIRBY
== END 2019-11-26 15:55 | disposition home or self-care (01) ==
LOC: ERS 10:52
DX: R11.2 Nausea with vomiting, unspecified (principal); R10.9 Unspecified abdominal pain; T45.1X5A Adverse effect of antineoplastic and immunosuppressive drugs, initial encounter
CPT/HCPCS: 76856; 80053; 81003; 85025; 96361; 96374; 96375; 96376; J1885; J2270; J2405

== ENCOUNTER 2019-12-01 14:22 | Observation (INO) | payer OTHER ==
[2019-12-01 14:51] LABS: #Lymphocytes 1.3 thou/uL (1.20-3.40); #Monocytes 0.4 thou/uL (0.11-0.59); #Neutrophils 2.6 thou/uL (1.40-6.50); %Basophils 0.4 % (0.0-1.0); %Eosinophils 0.9 % (0.0-10.0); %Lymphocytes 29.7 % (21.0-51.0); %Monocytes 9.3 % (0.0-10.0); %Neutrophils 59.7 % (42.0-75.0); Hemoglobin 12.2 g/dL (12.0-16.0); Mean Corpuscular HGB CONC 33.9 g/dL (32.0-36.0); Mean Corpuscular Hemoglobin 27.9 pg (27.0-31.0); Mean Corpuscular Volume 82.1 fL (78.0-98.0); Mean Platelet Volume 7.6 fL (7.4-10.4); Platelet Count 161 thou/uL (130-400); RBC Distribution Width 11.8 % (11.5-14.5); Red Blood Cell (RBC) Count 4.37 mill/uL (4.20-5.40); White Blood Cell (WBC) Count 4.4 thou/uL (4.8-10.8)
[2019-12-01 15:04] LABS: Bacteria/HPF None Seen HPF (None Seen); Bilirubin Negative (Negative); Blood, Urine Negative (Negative); Clarity Clear (Clear); Glucose, Urine (Dipstick) Normal (Negative); Leukocyte 25 Leu/uL (Negative); Nitrite Negative (Negative); Protein, Urine (Dipstick) Negative (Neg-Trace); RBC/HPF 0-3 HPF (0-3); Urobilinogen Normal mg/dL (Less than 2); WBC/HPF 0-3 HPF (0-3)
[2019-12-01] MEDS ORDERED: Morphine 4 MG/ML VIAL ONE (15:11)
[2019-12-01] MEDS ORDERED: Ondansetron PF 4 MG/2 ML Vial ONE (15:15)
[2019-12-01 15:20] LABS: ALT (SGPT) 12 U/L (8-55); AST (SGOT) 15 U/L (5-34); Albumin 3.9 g/dL (3.5-5.0); Alkaline Phosphatase 73 U/L (40-110); Anion Gap 12 mmol/L (10-20); BUN (Urea Nitrogen) 5 mg/dL (7.0-18.7); Bilirubin, Total 0.3 mg/dL (0.2-1.2); Calc. Creatinine Clearance 0 mL/min (70-130); Carbon Dioxide 28 mmol/L (22-29); Chloride 104 mmol/L (98-107); Estimated GFR-MDRD Greater than 90; Globulin 2.8 g/dL (2.4-3.5); Glucose 89 mg/dL (70-105); Lipase 35 U/L (8-78); Potassium 3.8 mmol/L (3.5-5.1); Protein, Total 6.7 g/dL (6.0-8.3); Sodium 140 mmol/L (136-145)
--- NOTE | 2019-12-01 16:09 | ULT ---
Exam: Transabdominal and endovaginal pelvic ultrasound HISTORY: patient. Severe pelvic pain. Evaluate for ectopic. COMPARISON:11/26/2019 TECHNIQUE: Transabdominal and endovaginal imaging of the pelvis is performed. Ovaries are interrogate d with grayscale, color flow, Doppler imaging and spectral wave form analysis FINDINGS: Uterus: No myometrial masses. Uterus measurin.4 x 5.9 x 4.6 cm. Endometrium: Within the endometrium, there is a gestational sac, yolk sac, pole. [place]-rump julio gth is 0.2 cm corresponding to gestational age of 5 weeks 5 days. No subchorionic hemorrhage. heart tones not appreciated. Free fluid: None Right ovary: Not appreciated. Left ovary: Normal echotexture. Left ovary measurements: 1.8 x 2.6 x 3.2 cm Ovarian Doppler: There is vascular flow to the left ovary. IMPRESSION: 1. Gestational sac, yolk sac and pole noted within the endometrium. Gestational age by crown-ru mp length is 5 weeks 5 days. Absent heart tones are presumed to be due to early gestational age. Follow-up ultrasound and serial beta-hCGs are recommended. 2. Nonvisualization right ovary. No obvious free fluid in the pelvis. Transcribed Date/Time: 12/01/2019 5:51 PM
[2019-12-01] MEDS ORDERED: Acetaminophen 325 MG/10.15 ML UDCUP PO PRN ×2 (17:33→19:32)
[2019-12-01] MEDS ORDERED: Acetaminophen 325 MG TAB PO PRN ×2 (17:33→19:32)
[2019-12-01] MEDS ORDERED: Ondansetron ODT 4 MG TAB PO PRN ×2 (17:33→19:33)
[2019-12-01] MEDS ORDERED: Ondansetron PF 4 MG/2 ML Vial IVP PRN ×2 (17:33→19:33)
[2019-12-01] MEDS ORDERED: Zolpidem Tartrate 5 MG TAB PO PRN ×2 (17:33→19:33)
[2019-12-01] MEDS ORDERED: Lactated Ringer's 1,000 ML IV SCH (17:45)
[2019-12-01] MEDS ORDERED: Meperidine HCl/PF 25 MG/ML VIAL IM PRN ×2 (17:54→19:33)
[2019-12-01] MEDS ORDERED: Promethazine HCl 25 MG/ML VIAL IM/IV PRN ×2 (17:55→19:33)
[2019-12-01] MEDS ORDERED: Acetaminophen 325 MG TAB ONE (18:25)
--- NOTE | 2019-12-01 18:35 | HP ---
TIME OF ADMISSION: 1715 hours. REASON FOR ADMISSION: Pain controlled and missed AB at 6 weeks' gestation. HISTORY OF PRESENT ILLNESS: Ms. Garcias is a 24-year-old 6, para 3, x3, ectopic x2, laparoscopic salpingectomy x1, who has been seen multiple times in the emergency room since 11/22. On 11/24, she received methotrexate 50 mg/m2 for suspected ectopic . Her beta-hCG level has gone from 16,000 on the 4th to 20,000 today. Ultrasound reveals an intrauterine gestational sac with pole with absent FHTs. Considering elevated beta-hCG of 20,000 with negative FHTs, this is consistent with a missed AB. The patient's original beta on 11/22 was 4500 with a normal rise, doubling on 11/24 to 10,000 and now with a 50% to 100% rise taking 9 days instead of the expected POR. Hematocrit is stable and there is no evidence of intra-abdominal hemorrhage or ectopic on the ultrasound. MAINTENANCE AND ENGINEERING MANAGER HISTORY: As noted in the HPI. PAST MEDICAL HISTORY: None. PAST SURGICAL HISTORY: C-sections x3 and 2 laparoscopies. ALLERGIES: NONE. MEDICATIONS: None. SOCIAL HISTORY: The patient denies alcohol, drugs, or tobacco use. However, strong smell of tobacco as noted in the patient's room in the ER. FAMILY HISTORY: Noncontributory. REVIEW OF SYSTEMS: Noncontributory. PHYSICAL EXAMINATION: GENERAL: White female, resting comfortably. VITAL SIGNS: Pulse 85, respirations 18, blood pressure 118/72, and temperature 98.6. HEENT: Within normal limits on auscultation bilaterally. HEART: Regular rhythm. ABDOMEN: Soft and nontender without rebound or guarding, although she complains of discomfort in bilateral lower quadrants on exam. EXTREMITIES: Without clubbing, cyanosis, or edema. PELVIC: Deferred. Bleeding has been reported by the patient and none is noted on the perineum. LABORATORY DATA: Blood type O positive, antibody negative, hematocrit 36%, white count 4.4, basements within normal limits. Beta-hCG is 20,484. Urinalysis is negative. Ultrasound reveals crown-rump length consistent with 5 weeks 5 days, absent FHTs. No adnexal masses. Gestational sac measurements not given by Radiology. My over-read of the ultrasound pictures revealed the gestational side to be greater than 2 cm and consistent with a missed AB. IMPRESSION: Missed with a history of prior ectopic, complaining of pain without objective findings consistent with the patient's pain, status post methotrexate, nonviable . PLAN: Discussed with the patient options. We will admit the patient. D and C can be done on a nonemergent basis. Tomorrow, we will make the patient n.p.o. after midnight and administer appropriate antibiotic and DVT prophylaxis. The case was discussed with Dr. Ryland Appiah, who is an OB hospitalist on tomorrow and he has agrees with care plan. Job ID: [id number]
[2019-12-01] MEDS ORDERED: Acetaminophen 650 MG/20.3 ML UDCUP PO PRN (19:45)
[2019-12-01] MEDS: Lactated Ringer's 1,000 ML IV SCH (19:54)
[2019-12-01] MEDS: Famotidine/PF 20 mg/2ml Vial SLOW IVP SCH (19:54)
[2019-12-01] MEDS ORDERED: Famotidine 20 MG TAB PO SCH (21:00)
[2019-12-01] MEDS ORDERED: Famotidine/PF 20 mg/2ml Vial SLOW IVP SCH (21:00)
[2019-12-01] MEDS: Famotidine 20 MG TAB PO SCH (22:08)
[2019-12-01 22:09] VITALS: BMI 24.1
[2019-12-02] MEDS: Lactated Ringer's 1,000 ML IV SCH ×2 (04:24→10:50)
--- NOTE | 2019-12-02 07:53 | PRG ---
DATE OF SERVICE: 12/02/2019 TIME OF SERVICE: 0705 hours. SUBJECTIVE: The patient is resting comfortably. She has had no bleeding overnight. OBJECTIVE: VITAL SIGNS: Stable. ABDOMEN: Unremarkable. IMPRESSION: Missed , beta-hCG of 20,000, status post prior ectopic, status post previous section, status post methotrexate. PLAN: Suction sharp D and C later this morning by Dr. Appiah, OB hospitalist on today. The patient understands risks and benefits of procedure. Job ID: [id number]
[2019-12-02] MEDS: Famotidine/PF 20 mg/2ml Vial SLOW IVP SCH (08:48)
[2019-12-02] MEDS: Famotidine 20 MG TAB PO SCH (09:00)
[2019-12-02] MEDS ORDERED: Fentanyl 100 MCG/2 ML VIAL ONE ×3 (11:12→13:45)
[2019-12-02] MEDS ORDERED: Promethazine HCl 25 MG/ML VIAL SLOW IVP PRN (13:15)
[2019-12-02] MEDS ORDERED: Ondansetron HCl/PF 4 MG/2 ML Vial IVP PRN (13:15)
[2019-12-02] MEDS ORDERED: Promethazine HCl 25 MG/ML VIAL IM PRN (13:15)
[2019-12-02] MEDS ORDERED: Ondansetron PF 4 MG/2 ML Vial ONE (13:51)
[2019-12-02] MEDS ORDERED: Lidocaine 1% PF 5 ML VIAL ONE (13:51)
[2019-12-02] MEDS ORDERED: PROPOFOL 200 MG/20 ML VIAL ONE (13:51)
[2019-12-02] MEDS ORDERED: Dexamethasone 20 MG/5 ML VIAL ONE (13:51)
[2019-12-02] MEDS ORDERED: Promethazine HCl 25 MG/ML VIAL ONE (14:13)
[2019-12-02] MEDS ORDERED: diphenhydrAMINE 50 MG/ML VIAL ONE (14:16)
[2019-12-02 15:59] VITALS: BP 101/66; TEMP 97.9
--- NOTE | 2019-12-03 01:17 | OP ---
DATE OF PROCEDURE: 12/02/2019 PREOPERATIVE DIAGNOSIS: Missed , approximately 7-8 weeks by last menstrual period, 5 weeks 5 days by pole. POSTOPERATIVE DIAGNOSIS: Missed , approximately 7-8 weeks by last menstrual period, 5 weeks 5 days by pole. PROCEDURE PERFORMED: Suction dilation and curettage. ANESTHESIA: General. COMPLICATIONS: None. COUNTS: Correct. CONDITION: Stable to recovery room. URINE OUTPUT: About 250 mL. ESTIMATED BLOOD LOSS: About 200 mL, total. SPECIMENS: Products of conception. FINDINGS: Uterus sounded to approximately 10 cm, anteverted. INDICATIONS FOR PROCEDURE: Ms. Garcias is a 24-year-old female with a complicated abnormal , resulting in a missed AB as evidenced by a pole measuring 5 weeks and 5 days without any heart tones and inappropriately rising and dropping quantitative HCG. DESCRIPTION OF PROCEDURE: The patient is a 24-year-old female diagnosed with a missed AB, presented for a suction D and C. After being counseled for the D and C and reviewing her course, the patient had expressed understanding of the risks and benefits and alternatives and desired to proceed with surgery. The patient was counseled to alternatives including expectant management versus medical management. The patient was taken to the operating room and placed under general anesthesia without difficulty. She was placed in dorsal lithotomy position in [facility]-cane stirrups. After being prepped and draped, attention was then placed vaginally, where with the aid of an operative speculum, the cervix was identified and grasped with a single-tooth tenaculum. The uterus was sounded to 10 cm and dilated to accommodate a 7 mm curved curette. Suction D and C was tested to be at 40 cm of water at time of use. Approximately 3 passes of the curved curette were performed and the passage of the serrated sharp curette revealed a very slick intrauterine cavity. The 7 mm curved curette was then passed again a couple of more times resulting again in a very slick endometrial cavity. At this point in time, the curette was then changed to an 8 mm curette and with passage of this curette on 2 occasions, the endometrial cavity resulted in a more typical gritty feeling with this serrated curette. Bleeding had resolved, which had been significant for a short period of time. The suction curette was then passed one more time to remove any of the debris from the sharp curette and the procedure was then completed with removal of the tenaculum and presence of hemostasis. The patient was then taken to recovery room in stable condition and the products of conception were sent to Pathology for review. Job ID: [id number]
--- NOTE | 2019-12-05 09:44 | DIS ---
DATE OF ADMISSION: 12/01/2019 DATE OF DISCHARGE: 12/02/2019 ADMITTING DIAGNOSES: 1. Missed at ___6 weeks gestation. 2. Abdominal pain. DISCHARGE DIAGNOSES: 1. Missed at 6____ weeks gestation. 2. Abdominal pain. PROCEDURE: Suction D and C. CONSULTATIONS: None. HOSPITAL COURSE: The patient is a 24-year-old female, who has presented to the emergency room on multiple occasions over the last several weeks, presenting to Labor and Delivery with a missed AB and abdominal pain. She had a history of methotrexate with this with concerns of it being an ectopic versus an abnormal . Methotrexate did not work sufficient, but given the patient's abdominal pain and presence of this ___6 -week intrauterine demise, the patient was admitted for pain control and for management. The patient has opted for a suction D and C, which was performed. For complete details, please refer to the operative note. The D and C were uncomplicated and the patient was sent back to her room for recovery. Postsurgical recovery was uncomplicated. The patient was discharged home later that day with ibuprofen and tramadol for pain control and instructions to follow up with Dr. Dai in 2 weeks. Job ID: [id number] [email or web address]
== END 2019-12-02 17:58 | disposition home or self-care (01) ==
LOC: ERS 14:22 → SURG A 19:09
PROVIDERS: ADMIT Obstetrics & Gynecology; ATTEND Obstetrics & Gynecology
PROC: 10D17ZZ Extraction of Products of Conception, Retained, Via Natural or Artificial Opening (ICD-10-PCS; principal; 2019-12-02)
DX: O02.1 Missed abortion (principal)
CPT/HCPCS: 36415; 76856; 80053; 81003; 81015; 83690; 84702; 85025; 86900; 86901; 88305; 96361; 96374; 96375; 96376; G0378; J1100; J1200; J2001; J2270; J2405; J2550; J2704; J3010; Q0162; S0028

== ENCOUNTER 2021-03-26 15:00 | Emergency (ER) | payer OTHER ==
[2021-03-26] MEDS ORDERED: Ondansetron PF 4 MG/2 ML Vial ONE (15:51)
[2021-03-26] MEDS ORDERED: Lidocaine Viscous Sol 2% 15 ml UD Cup ONE (15:51)
[2021-03-26] MEDS ORDERED: Mag-Al 1200 mg/1200 mg/30 ML UDCUP ONE (15:51)
[2021-03-26 15:58] LABS: Bilirubin Negative (Negative); Blood, Urine Negative (Negative); Clarity Clear (Clear); Glucose, Urine (Dipstick) Normal (Negative); Ketone, Urine Negative (Negative); Leukocyte Negative Leu/uL (Negative); Nitrite Negative (Negative); Protein, Urine (Dipstick) Negative (Neg-Trace); Specific Gravity, Urine 1.021 (1.002-1.036); Urobilinogen Normal mg/dL (Less than 2)
[2021-03-26 16:01] LABS: Pregnancy Test - Urine (BHCG) Negative (Negative); Pregu Control Background? CLEAR/WHITE (CLR/WHITE); Pregu Control Bar Appear? YES (CONTROL BAR); Specific Gravity 1.021 (1.002-1.036)
[2021-03-26 16:12] LABS: #Eosinphils 0.2 thou/uL (0.0-0.7); #Lymphocytes 1.8 thou/uL (1.20-3.40); #Monocytes 0.6 thou/uL (0.11-0.59); %Basophils 0.5 % (0.0-1.0); %Eosinophils 2.8 % (0.0-10.0); %Lymphocytes 20.7 % (21.0-51.0); %Monocytes 6.6 % (0.0-10.0); %Neutrophils 69.3 % (42.0-75.0); Hemoglobin 14.9 g/dL (12.0-16.0); Mean Corpuscular HGB CONC 34.3 g/dL (32.0-36.0); Mean Corpuscular Hemoglobin 29.2 pg (27.0-31.0); Mean Corpuscular Volume 85.1 fL (78.0-98.0); Mean Platelet Volume 8.4 fL (7.4-10.4); Platelet Count 199 thou/uL (130-400); RBC Distribution Width 10.9 % (11.5-14.5); Red Blood Cell (RBC) Count 5.11 mill/uL (4.20-5.40); White Blood Cell (WBC) Count 8.7 thou/uL (4.8-10.8)
[2021-03-26 16:33] LABS: ALT (SGPT) 26 U/L (8-55); AST (SGOT) 22 U/L (5-34); Albumin 4.9 g/dL (3.5-5.0); Alkaline Phosphatase 96 U/L (40-110); Anion Gap 14 mmol/L (10-20); BUN (Urea Nitrogen) 13 mg/dL (7.0-18.7); Bilirubin, Total 0.6 mg/dL (0.2-1.2); Calc. Creatinine Clearance 0 mL/min (70-130); Calcium 11.2 mg/dL (7.8-10.44); Carbon Dioxide 25 mmol/L (22-29); Chloride 102 mmol/L (98-107); Globulin 3.6 g/dL (2.4-3.5); Glucose 87 mg/dL (70-105); Lipase 37 U/L (8-78); Potassium 3.9 mmol/L (3.5-5.1); Protein, Total 8.5 g/dL (6.0-8.3); Sodium 137 mmol/L (136-145)
[2021-03-26] MEDS ORDERED: Ketorolac Tromethamine 30 MG/ML VIAL ONE (17:00)
== END 2021-03-26 17:07 | disposition home or self-care (01) ==
LOC: ERS 15:00
DX: R10.13 Epigastric pain (principal); R11.2 Nausea with vomiting, unspecified
CPT/HCPCS: 80053; 81003; 81025; 83690; 85025; 96374; 96375; J1885; J2405

== ENCOUNTER 2024-12-18 12:22 | Emergency (ER) | payer OTHER ==
[2024-12-18 12:48] LABS: Clarity Hazy (Clear); Leukocyte Unable to Interpret Leu/uL (Negative); Pregnancy Test - Urine (BHCG) Negative (Negative); Pregu Control Background? CLEAR/WHITE (CLR/WHITE); Pregu Control Bar Appear? YES (CONTROL BAR); Specific Gravity 1.008 (1.002-1.036); Specific Gravity, Urine 1.008 (1.002-1.036); pH, Urine 6.9 (5.0-9.0)
[2024-12-18 12:49] LABS: Bilirubin Unable to Interpret (Negative); Blood, Urine Unable to Interpret (Negative); Glucose, Urine (Dipstick) Unable to Interpret mg/dL (Negative); Ketone, Urine Unable to Interpret mg/dL (Negative); Nitrite Unable to Interpret (Negative); Protein, Urine (Dipstick) Unable to Interpret mg/dL (Neg-Trace); Urobilinogen UNABLE TO INTERPRET mg/dL (Less than 2)
[2024-12-18 12:50] LABS: Bacteria/HPF 3+ HPF (None Seen); CAUTI Indications for Culture Acute Hematuria; Transitional Epithelial 0-3 HPF (None Seen)
[2024-12-18 12:51] LABS: Urine Culture Reflex Yes Yes
[2024-12-18 13:01] LABS: #Basophils 0.05 10x3/uL (0.0-0.2); %Basophils 0.8 % (0.0-1.0); %Eosinophils 1.3 % (0.0-10.0); %Lymphocytes 23.6 % (21.0-51.0); %Monocytes 7.3 % (0.0-10.0); %Neutrophils 66.7 % (42.0-75.0); Hemoglobin 13.6 g/dL (12.0-16.0); Mean Corpuscular Hemoglobin 29.1 pg (27.0-31.0); Mean Corpuscular Volume 85.7 fL (78.0-98.0); Mean Platelet Volume 10.6 fL (7.4-10.4); Platelet Count 175 10x3/uL (130-400); RBC Distribution Width 11.9 % (11.5-14.5); Red Blood Cell (RBC) Count 4.67 mill/uL (4.20-5.40)
[2024-12-18 13:22] LABS: ALT (SGPT) 24 U/L (Less than 34); AST (SGOT) 26 U/L (11-34); Albumin 3.8 g/dL (3.1-4.5); Alkaline Phosphatase 65 U/L (40-110); Anion Gap 11 mmol/L (10-20); BUN (Urea Nitrogen) 9 mg/dL (7.0-18.7); Bilirubin, Total 0.7 mg/dL (0.3-1.2); Calc. Creatinine Clearance 0 mL/min (70-130); Carbon Dioxide 24 mmol/L (22-29); Chloride 106 mmol/L (98-107); Estimated GFR 110; Globulin 3.3 g/dL (2.4-3.5); Glucose 86 mg/dL (70-105); Lipase 16 U/L (8-78); Potassium 3.7 mmol/L (3.5-5.1); Protein, Total 7.1 g/dL (6.0-8.3); Sodium 137 mmol/L (136-145)
[2024-12-18] MEDS ORDERED: Ketorolac Tromethamine 30 MG (1 mL) VIAL ONE (15:28)
[2024-12-18] MEDS ORDERED: Morphine 4 MG/ML VIAL ONE (15:28)
[2024-12-18] MEDS ORDERED: Sodium Chloride 0.9% 100 ML ONE (15:54)
[2024-12-18] MEDS ORDERED: Ondansetron PF 4 MG/2 ML Vial ONE (15:54)
[2024-12-18] MEDS ORDERED: cefTRIAXone (ROCEPHIN) 2 GM VIAL ONE (15:54)
== END 2024-12-18 19:27 | disposition home or self-care (01) ==
LOC: ERS 12:22
DX: N39.0 Urinary tract infection, site not specified (principal); N83.202 Unspecified ovarian cyst, left side
CPT/HCPCS: 36415; 74176; 76856; 80053; 81001; 81025; 83690; 85025; 87077; 87086; 87186; 96374; 96375; J0696; J1885; J2270; J2405